=== PATIENT | male | born 1990 | race African-American/Black ===

== ENCOUNTER → 2018-02-18 13:19 | Outpatient (CLI) | payer MEDICAID, SELFPAY ==
--- NOTE | 2018-02-18 | LES_PTH ---
PATIENT: TRANG MATIAS Jr. LOC: [facility] U#:[id number] AGE/SX: 35/M ROOM: RE02/18/[address]: Dr. Kyaw Gil MD : 1990 BED: DIS: SPEC #: [id number] RECD: 02/19/18 07:38 STATUS: ROB VIC #: [id number] MARTIN: 02/18/18 00:[address]: Kyaw Gil DEPT: SURGICAL PATHOLOGY RECD BY: Garth Torres Tissues: Skin of eyelid, NOS Procedures: Surgery Specimen Level IV HEADER OPERATION: Left upper eyelid lesion excision PRE-OP DIAGNOSIS: Possible old chalazion TISSUE SUBMITTED: Left upper lid lesion MICROSCOPIC DIAGNOSIS Left upper lid lesion, excision: A fragment of fibroconnective tissue with acute and chronic inflammation and foreign body giant cell reaction, consistent with chalazion. SJ:jaime 02/20/18 MICROSCOPIC DESCRIPTION Slides are reviewed. GROSS DESCRIPTION Received in fixative is one container labeled with the patient's name and designated upper lateral canthus. The specimen consists of a piece of buitrago-white skin measuring 0.5 x 0.5 x 0.2 cm. The entire specimen is submitted in one cassette. / SJ:jaime 02/19/18 TC:5 CPT: 57867
== END ==
PROVIDERS: Family Provider Ophthalmology; Visit Provider Ophthalmology
DX: H02.9 Unspecified disorder of eyelid (principal)
CPT/HCPCS: 88305

== ENCOUNTER 2018-09-24 12:30 | Outpatient (RCR) | payer MEDICAID, SELFPAY ==
--- NOTE | 2018-09-15 18:31 | HP.SP.AD_ITS ---
History - History Date of Eval: 09/12/18 Previous speech therapy: Yes Results: Pt received speech therapy in school for stuttering. Other Relevant Medical History/Diagnoses/Surgery: Bariatric surgery in 2015 Smoking Status: Current some day smoker Hx Tobacco Use: Yes - Pain Is pain an issue with your current prescribed condition?: No - Personal Occupation: Auto Electrical Technician for [employer] Patient Allergies - Allergies Allergies pollen extracts Allergy (Verified 08/15/16 00:22) Other aspirin Adverse Reaction (Verified 08/15/16 00:22) Unknown Subjective Fluency - Fluency Subjective: The pt reports that he hates when he talks because he talks fast and stutters. Objective Fluency - Type of Dysfluencies History of fluency disorder: The pt reports that he began stuttering in 1999 at 9 years of age after his father . He does not know if he stuttered before this time, but knows that he was not conscious of it if he did. Onset was gradual over a couple of months, with the pt feeling depressed and sad and attending counseling. He received speech therapy in the school setting where they worked with him on slowing his rate and tapping on something for pacing. However, the pt reports minimal improvement and now feels that his fluency has been worsening over the last couple of months. There have been no recent traumatic experiences. 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 The pt does report that his mom has a slight stutter, but cannot name any other family members who produce dysfluencies. Chapincito states that his stuttering is noticably worse when he is excited or frustrated, and that it waxes and wans throughout the day, with some periods of fluency. He feels his stutter is actually worse around his family because he just let's go but that he does not know of any particular strategies he uses when speaking with others. He does use avoidance behaviors, including circumlocution as well as just not talking, often. However, he cannot state certain sounds or words that he stutters on most frequently. - Comments Dysfluencies Observed -: The pt presents with a very fast rate of speech. Moments of dysfluency are most frequently characterized by repetitions of both initial sounds, syllables, and whole single-syllable words. Up to five repetitions per word/sound were noted during this evaluation, typically at the beginning of a setence, but were also observed mid-sentence. The pt also very frequently produces interjections, especially umm. Much less commonly, he will produce slight prolongations (<1 sec) and brief blocks (<1 sec). No visible tension was noted, however, the pt does frequently break eye contact and/or turn his head during an episode of stuttering. Additionally, the pt did present with some [id number] dysfluencies, including phrase repetitions and restarts. Overall, the pt presents with a moderate stutter which negatively impacts his interactions with those around him. Plan - Plan Plan: Skilled speech-language therapy is warranted to improve the pt's speech fluency, as Chapincito reports his stuttering is negatively impacting his ability to communicate with those around him across environments. - Recommendations Treatment Warranted: Yes - Frequency Frequency: 1x/Week Duration: 6 Months - Prognosis Prognosis: Excellent - Goals that are Established: Determination:: Goals will be added/modified as deemed necessary and appropriate. Therapy will be discontinued when results of re-evaluation indicate therapy is no longer needed or lack of progress has been documented. - Goal #1-5 Goal #1: The pt will increase his knowledge of the disorder of stuttering through discussion and by answering questions with 90% accuracy in 2/3 consecutive sessions. Goal #2: The pt will demonstrate increased awareness of his own speech production by identifying characteristics of fluent and disfluent speech with 90% accuracy in 2/3 consecutive sessions. Goal #3: The pt will utilize a variety of stuttering modification and fluency shaping techniques during structured therapy activities with 90% accuracy in 2/3 consecutive sessions. Goal #4: The pt will report increased fluency at least 2x/session in a variety of speaking situations in everyday settings in 2/3 consecutive sessions. Education - Patient Instruction Patient Education: Diagnosis, Treatment Plan, Goals Person Taught: Patient
--- NOTE | 2018-10-27 09:51 | HP.SP.DC ---
ST Discharge Summary - Discharged: Discharge: Chapincito Joya Jr. is discharged from outpatient speech-language therapy effective 10/27/18. Chapincito participated in two treatment sessions for adult stuttering following his initial evaluation before not showing up for the next five scheduled sessions. Treatment had focused on increasing his knowlege about stuttering and increasing awareness of his own speech production, as well as using a variety of stuttering modification and fluency shaping techniques. Chapincito would continue to benefit from stuttering therapy if willing. Please reconsult as appropriate.
== END 2018-09-24 19:00 | disposition home or self-care (01) ==
LOC: SP 12:30
PROVIDERS: Family Provider Internal Medicine; PCP Internal Medicine; Referring Provider Internal Medicine; Visit Provider Internal Medicine
DX: F98.5 Adult onset fluency disorder (principal)
CPT/HCPCS: 92507; 92521

== ENCOUNTER 2019-07-01 21:21 | Emergency (ER) | payer MEDICAID, SELFPAY ==
[2019-07-01 21:22] VITALS: BP 143/89; PULSE 74; RESP 14; TEMP 36.7; O2SAT 97; BMI 32.8
--- NOTE | 2019-07-01 22:02 | RAD_ITS ---
HISTORY: PATIENT STATES HE WAS STEPPING ON ONTO A CURB. HE SCRAPPED HIT THE TOP OF HIS LEFT FOOT. NOW PAIN ACROSS TOP OF FOOT. COMPARISON: None FINDINGS: # of images incl. paperwork: 3 XR Foot Min 3 Views : No fracture or subluxation. No osseous or soft tissue abnormality. The joint spaces are well-maintained. No radiopaque foreign body is seen. RAD/Foot min 3 Views IMPRESSION: Normal left foot. at 2226 Reported and signed by: Efren Finch MD Electronically Signed: Efren Finch MD at 22:25 EDT Tel , Service support ,
--- NOTE | 2019-07-01 22:19 | ED.DCSUM_ITS ---
- ER Visit Summary Date of Service: 07/01/19 Chief Complaint: Left great toe injury History of Present Illness: The patient is a 29 M who states that last night he was wearing a pair of crocs when he struck his great toe on a concrete curb. He states that he immediately had pain and bruising particularly lateral over the foot. Physical Examination: Afebrile vital signs stable There is tenderness of the left great toe. There is no subungual hematoma toenail injury. Ecchymosis over the lateral aspect of the interphalangeal joint. Test Results: Nondisplaced fracture of the phalanx of the left great toe Emergency Department Course and Treatment: Patient was placed in a postop shoe. I will write for a few [place]. He is to follow-up with primary care Impression: 1. Left great toe phalangeal fracture This note was generated with [employer] dictation software. It may contain incorrect words, spelling, and punctuation that were not noted in review of the chart prior to signing ED Disposition - Plan for ED Patient: Disposition: Home or Assisted Living Instructions: FRACTURE, Toe [Closed] Prescriptions: Hydrocodone Bitart/Apap 5-325 [[place] 5MG-325MG] 1 tab PO Q6H PRN PRN 3 Days #10 tab PRN Reason: Pain Prescription Printed Referrals: Arvind Solis MD [Primary Care Provider] - 1-2 Weeks
[2019-07-01 22:46] VITALS: BP 140/60; PULSE 75; RESP 18; O2SAT 95
== END 2019-07-01 22:46 | disposition home or self-care (01) ==
PROVIDERS: Emergency Provider Emergency Medicine; Family Provider Internal Medicine; PCP Internal Medicine
DX: S92.405A Nondisplaced unspecified fracture of left great toe, initial encounter for closed fracture (principal); W22.8XXA Striking against or struck by other objects, initial encounter; Y93.9 Activity, unspecified; Z72.0 Tobacco use
CPT/HCPCS: 73630; 99283